=== PATIENT | male | born 1970 | race Caucasian/White ===

== ENCOUNTER 2017-02-20 12:05 | Emergency (ER) | payer OTHER ==
--- NOTE | ~2017-02-20 | CT71 ---
[facility] A Service of [facility] RADIOLOGY TEXT RESULTS PATIENT: SINGH WALLACE LOCATION: [facility] : 68 UNIT #: [id number] AGE: [address]: Alec White MD SEX: M ORDER DR: [id number] [facility] [address] [place], [place] [address] [id number] MR#: [id number] Acc #: [id number] NAME: SINGH WALLACE. : 1970 SEX: M STUDY DATE/TIME: 02/20/2017 12:50 UNIT: JER ROOM: STUDY DESCRIPTION: CT Head Wo Contrast Attending Physician: Alec White M.D. Ordering Physician: Alec White M.D. Primary Care Physician: Primary Care Physician No MEDICAL IMAGING REPORT This report is preliminary unless electronic signature is present EXAM CT head without contrast 02/20/1970 HISTORY 46-year-old male with a left-sided headache for 2 days. COMPARISON: CT head 07/07/2016. TECHNIQUE Routine unenhanced axial images performed through the brain. The CT exam was performed with one or more of the following radiation dose reduction techniques: automatic exposure control, adjustment of mA and/or kV according to patient size, and iterative reconstruction. FINDINGS No hemorrhage, acute infarction, mass lesion, or abnormal extraaxial fluid collection. No midline shift or focal mass effect. Ventricular system is normal in size and configuration. No acute bony abnormality. Visualized paranasal sinuses and mastoid air cells are clear. Incidental note of a remote lacunar infarct in the right basal ganglia. IMPRESSION No acute intracranial abnormality Dictated by... Singh Cleveland M.D. THIS IS AN ELECTRONICALLY VERIFIED REPORT Singh Cleveland M.D. at 02/20/2017 4:28 PM CARLOS ALBERTO/daniel TD: 02/20/2017 14:05 [facility] A Service of [facility] RADIOLOGY TEXT RESULTS PATIENT: SINGH WALLACE [facility] #: [id number] : 68 UNIT #: [id number] AGE: [address]: Alec White MD SEX: M ORDER DR: JOB #: [id number] MEDICAL IMAGING REPORT Page 1 of 1 COPY
[~2017-02-20 12:05] MED LIST: ACID REDUCER20 MG PO; ADVIL100 MG; AMLODIPINE BESY10 MG PO; ANTI-INFLAMMATORY PO; BACTRIM DS TABL1 TA1 PO; BAYER CHEWABLE81 MG PO; BENZONATATE; CLEOCIN HCL300 M1 PO; CUBICIN INJ; CUBICIN IV; CYMBALTA PO; DESYREL50 MG PO; DICLOFENAC SODI50 MG PO; DOXYCYCLINE HY100 M3 PO; DULOXETINE HCL60 MG PO; ENDOCET 5-3251 EACH PO; FAMOTIDINE20 M1 PO; FLEXERIL PO; FLEXERIL10 MG PO; GABAPENTIN300 MG PO; HYDROCODON-ACE1 EAC5 PO; HYDROCODONE-GU480 ML PO; HYDROCODONE/APA1 T16 PO; HYDROXYZINE HCL50 MG PO; IBUPROFEN PO; IBUPROFEN600 MG PO; IBUPROFEN800 MG PO; KEFLEX500 MG PO; LISINOPRIL10 MG PO; MELOXICAM15 MG PO; MOBIC15 MG PO; MOTRIN600 M2 PO; NEURONTIN300 MG PO; NICOTINE TRANSD21 MG EXT; NO MEDICATIONS; NORCO 10-325 TA1 TAB PO; NORVASC10 MG PO; OXYCODONE HCL5 MG PO; OXYCODONE-APAP1 EAC5 PO; PERCOCET 7.5-31 EACH PO; PERCOCET10 PO; PERCOCET5/325 PO; ROXICODONE5 MG PO; SEROQUEL50 M1 PO; SEROQUEL50 MG PO; TESSALON PERLE100 M1 PO; TYLENOL/CODEINE1 TA1 PO; TYLENOL325 M1 PO; VANCOMYCIN1.5 GM/252 IV; VOLTAREN50 MG PO; WELLBUTRIN PO; ZOCOR10 MG PO; ZOFRAN; ZOFRAN ODT4 MG PO
== END 2017-02-20 16:15 | disposition home or self-care (01) ==
LOC: CED 12:05
DX: R51 Headache (principal); I10 Essential (primary) hypertension; F17.200 Nicotine dependence, unspecified, uncomplicated; Z79.899 Other long term (current) drug therapy
CPT/HCPCS: 70450; 96361; 96374; 96375; 99284; J0780; J1200; J1885